=== PATIENT | female | born 2000 | race Caucasian/White ===

== ENCOUNTER 2024-06-29 19:45 | Emergency (ER) | payer SELFPAY ==
[~2024-06-29] VITALS: Ht 154.9 cm; Wt 63.0 kg
[2024-06-29 20:14] VITALS: BP 115/72; PULSE 75; RESP 18; TEMP 36.9; O2SAT 100
== END 2024-06-29 23:12 | disposition left against medical advice (07) ==
LOC: ER 19:45
DX: M25.561 Pain in right knee (principal); M25.551 Pain in right hip; Z53.21 Procedure and treatment not carried out due to patient leaving prior to being seen by health care provider; Z90.49 Acquired absence of other specified parts of digestive tract